=== PATIENT | female | born 1945 | race Caucasian/White ===

== ENCOUNTER 2016-06-12 08:25 | Emergency (ER) | payer OTHER ==
[2016-06-12] MEDS ORDERED: IPRATROPIUM/ALBUTEROL 3 ML DEYVIAL IH ONE (09:05)
--- NOTE | 2016-06-12 09:05 | UCPHY ---
H & P Time Seen by Provider: 06/12/16 08:34 Patient Type: Established HPI/ROS: CHIEF COMPLAINT: Cough, body aches HPI: The patient is a 70-year-old female with a history of uterine cancer and polymyositis. She complains of approximately 3 days of nonproductive cough and body aches. She has not had a fever. She denies chest pain. She denies rash. She does complain of a mild headache. She has been taking Mucinex. REVIEW OF SYSTEMS: Aside from elements discussed in the HPI, a comprehensive 10-point review of systems was reviewed and is negative. PMH: Urine cancer, polymyositis. SOCIAL HISTORY: Denies drug or alcohol abuse. FAMILY HISTORY: Reviewed, noncontributory PHYSICAL EXAM: General:Patient is alert, in no acute distress. ENT:Eyes are normal to inspection. ENT inspection normal. Neck: Normal inspection. Full range of motion. Respiratory:No respiratory distress. Mild expiratory wheezes present bilaterally. Cardiovascular: Regular rate and rhythm. Strong peripheral pulses. Normal cap refill. Abdomen:The abdomen is nontender to palpation. There are no peritoneal signs. There are normal bowel sounds. Back: Normal to inspection. No tenderness to palpation. Skin: Normal color. No rash. Warm and dry. Extremities: Normal appearance. Full range of motion. Neuro: Oriented x3. Normal motor function. Normal sensory function. Smoking Status: Former smoker Constitutional: Initial Vital Signs Temperature (C) 36.9 C 06/12/16 08:40 Heart Rate 105 H 06/12/16 08:40 Respiratory Rate 22 H 06/12/16 08:40 Blood Pressure 102/60 06/12/16 08:40 O2 Sat (%) 95 06/12/16 08:40 O2 Delivery Mode Room Air Allergies/Adverse Reactions: acetaminophen [From Percocet] Allergy (Mild, Verified 06/12/16 08:40) adhesive Allergy (Mild, Verified 06/12/16 08:40) Rash oxycodone HCl [From Percocet] Allergy (Mild, Verified 06/12/16 08:40) methotrexate [Methotrexate] Allergy (Unknown, Verified 06/12/16 08:40) propoxyphene Allergy (Unknown, Verified 06/12/16 08:40) venom-honey bee [bee venom (honey bee)] Allergy (Unknown, Verified 06/12/16 08: 40) venom-wasp [Wasp Venom] Allergy (Verified 06/12/16 08:40) Home Medications: Medication Instructions Recorded FLUoxetine [Prozac 10 MG (RX)] 10 mg PO DAILY 03/17/12 [place]-3 Fatty Acids [Fish Oil 1000 1,000 mg PO DAILY 03/17/12 mg (OTC)] VALSARTAN/HYDROCHLOROTHIAZIDE 1 each PO DAILY 03/17/12 [Diovan Hct 160-12.5 Mg Tab] Wheat Dextrin [Benefiber] 1 gm PO BID 03/17/12 Levothyroxine [Synthroid 100 mcg 100 mcg PO DAILY06 04/11/12 (RX)] predniSONE [predniSONE] 5 mg PO Q2D 04/11/12 Xalatan 0.005% (RX) 02/21/13 Azithromycin [Zithromax 250 mg 250 mg PO DAILY #6 tab 05/20/13 tab(RX)] Ipratropium/Albuterol Sulfate 2 inh IH QID #1 aer.w.adap 05/20/13 [Combivent Respimat Inhal [place]] predniSONE [Prednisone] 20 mg PO TID #20 tablet 05/20/13 AZITHROMYCIN [Z-PACK] 250 mg PO DAILY 5 Days 06/12/16 HYDROcodone/HOMATROPINE HYCODA 1 tsp PO Q4-6PRN PRN #120 ml 06/12/16 [Hycodan Syrup (RX)] MDM/Departure - MDM Medications Given: Discontinued Medications Albuterol/Ipratropium (Duoneb) 3 ml IH EDNOW ONE Stop: 06/12/16 09:06 Last Admin: 06/12/16 09:19 Dose: 3 ml ED Course/Re-evaluation: This patient presents with cough and body aches that are concerning for pneumonia or influenza. Thankfully, her chest x-ray is negative as is her flu swab. I suspect she likely has a viral upper respiratory illness. I have agreed to give her cough medicine and a prescription for azithromycin should her symptoms worsen. She was mildly tachycardic on exam, but is extremely well- appearing I have no concerns for severe sepsis or septic shock. She has no chest pain to suggest PE or acute coronary syndrome. Discussed strict return precautions. - Depart Disposition: Home, Routine, Self-Care Clinical Impression: Bronchitis Condition: Good Instructions: Acute Bronchitis (ED) Additional Instructions: Use ibuprofen and Tylenol as needed for fever and body aches. Follow up with your primary care physician within 72 hours for reevaluation. Drink plenty of fluids. Return to the emergency department immediately for high fever, severe headache or neck pain, difficulty breathing, abdominal pain, rash or other worsening of condition. Prescriptions: AZITHROMYCIN [Z-PACK] 250 mg PO DAILY 5 Days HYDROcodone/HOMATROPINE HYCODA [Hycodan Syrup (RX)] 1 tsp PO Q4-6PRN PRN #120 ml PRN Reason: Cough, Severe Referrals: Michelle Oneal MD [Primary Care Provider] - As per Instructions - PQRS PQRS Measurement: 134: Depression screening and followup, PRIME MD-PHQ2 (12 years and older) Over the last 2 weeks, how often have you been bothered by any of the following problems? 1. Feeling down, depressed, or hopeless? 2. Little interest or pleasure in doing things? Patient answered no to both 1 and 2 130: Documentation of medications. Reviewed all patient medications, doses, route and frequency. 226: Do you smoke? No. 51: 18 years old and older with diagnosis of COPD, spirometry performance. Spirometry not performed; equipment not available. Patient has no history of COPD 52: 18 years old and older with COPD and symptoms of COPD or FEV1<60% predicted prescribed a B Agonist. Spirometry not performed; equipment not available.
[2016-06-12 09:40] VITALS: BP 111/68; PULSE 102; RESP 20; TEMP 98.2; O2SAT 96
== END 2016-06-12 09:38 | disposition home or self-care (01) ==
LOC: CED 08:25
DX: J40 Bronchitis, not specified as acute or chronic (principal); Z87.891 Personal history of nicotine dependence; Z88.5 Allergy status to narcotic agent
CPT/HCPCS: 71020; G0463; 87400-PO; 99214-PO

== ENCOUNTER 2016-06-14 08:00 | Emergency (ER) | payer OTHER ==
[2016-06-14 08:23] VITALS: TEMP 97.9
--- NOTE | 2016-06-14 08:25 | UCPHY ---
H & P Time Seen by Provider: 06/14/16 08:21 Patient Type: Established HPI/ROS: Chief complaint. Dizziness HPI. 70-year-old female seen urgent care 2 days ago with diagnosis of acute bronchitis. While the cough continues he feels that it really is quite a bit better. She now for the last 1-2 days has been generally weak with tingling in all extremities. She gets lightheaded and near syncopal when she tries to walk across the room and now requires assistance to walk across the room. Diarrhea yesterday and today. Sore chest from coughing. Cough remains nonproductive. No fever but hot and cold symptoms. Some abdominal cramping with the diarrhea. She has been using cough medicine but has not taken prescription for Zithromax given 2 days ago ROS Constitutional. Chills and generalized weakness Eyes. no problems with vision ENT. no sore throat, no nasal drainage Cardiovascular. Chest soreness from coughing Respiratory. Cough Abdominal. Some mild abdominal cramping with diarrhea . no problems urinating MS. no calf pain/swelling, no neck/back pain, no joint pain Skin. no rash Lymph. no swollen glands Neuro. Difficulty walking secondary to lightheadedness Past Medical/Surgical History: Past medical history uterine cancer in polymyositis Social History: , nonsmoker, no alcohol Smoking Status: Former smoker Physical Exam: General Appearance: Alert well-developed female mild distress vital signs are stable with initial blood pressure 172/95 Eyes: Pupils equal and round no pallor or injection. ENT, Mouth: Mucous membranes are moist. Respiratory: There are no retractions. Inspiratory expiratory rhonchi and junky sounding cough Cardiovascular: Regular rate and rhythm. Gastrointestinal: Abdomen is soft and nontender, no masses, bowel sounds normal. Neurological: Awake and alert, sensory and motor exams grossly normal. Skin: Warm and dry, no rashes. Musculoskeletal: Neck is supple nontender. Extremities symmetrical, full range of motion. Psychiatric: Patient is oriented X 3, there is no agitation. Constitutional: Initial Vital Signs Temperature (C) 36.6 C 06/14/16 08:20 Heart Rate 72 06/14/16 08:20 Respiratory Rate 16 06/14/16 08:20 Blood Pressure 172/95 H 06/14/16 08:20 O2 Sat (%) 98 06/14/16 08:20 O2 Delivery Mode Room Air Allergies/Adverse Reactions: acetaminophen [From Percocet] Allergy (Mild, Verified 06/14/16 08:16) adhesive Allergy (Mild, Verified 06/14/16 08:16) Rash oxycodone HCl [From Percocet] Allergy (Mild, Verified 06/14/16 08:16) methotrexate [Methotrexate] Allergy (Unknown, Verified 06/14/16 08:16) propoxyphene Allergy (Unknown, Verified 06/14/16 08:16) venom-honey bee [bee venom (honey bee)] Allergy (Unknown, Verified 06/14/16 08: 16) venom-wasp [Wasp Venom] Allergy (Verified 06/14/16 08:16) Home Medications: Medication Instructions Recorded FLUoxetine [Prozac 10 MG (RX)] 10 mg PO DAILY 03/17/12 [place]-3 Fatty Acids [Fish Oil 1000 1,000 mg PO DAILY 03/17/12 mg (OTC)] VALSARTAN/HYDROCHLOROTHIAZIDE 1 each PO DAILY 03/17/12 [Diovan Hct 160-12.5 Mg Tab] Wheat Dextrin [Benefiber] 1 gm PO BID 03/17/12 Levothyroxine [Synthroid 100 mcg 100 mcg PO DAILY06 04/11/12 (RX)] predniSONE [predniSONE] 5 mg PO Q2D 04/11/12 Xalatan 0.005% (RX) 02/21/13 Azithromycin [Zithromax 250 mg 250 mg PO DAILY #6 tab 05/20/13 tab(RX)] Ipratropium/Albuterol Sulfate 2 inh IH QID #1 aer.w.adap 05/20/13 [Combivent Respimat Inhal [place]] predniSONE [Prednisone] 20 mg PO TID #20 tablet 05/20/13 AZITHROMYCIN [Z-PACK] 250 mg PO DAILY 5 Days 06/12/16 HYDROcodone/HOMATROPINE HYCODA 1 tsp PO Q4-6PRN PRN #120 ml 06/12/16 [Hycodan Syrup (RX)] Medical Decision Making - Diagnostics EKG Interpretation: EKG interpreted by me shows normal sinus rhythm with normal interval and left axis deviation. There is no significant ST elevation or depression. QRS is otherwise normal. Rate is 71 Imaging: One-view chest x-ray compared with x-ray from 2 days ago shows stable chest. Peribronchial thickening and hiatal hernia but no evidence for pneumonia Procedures: IV normal saline with target of 1 L ED Course/Re-evaluation: On re-evaluation the patient feels better after saline. The patient, her , and I discussed imaging EKG lab studies. We discussed treatment plan including importance of follow-up and further evaluation. She is offered admission but declines. Differential Diagnosis: I have considered bronchitis, pneumonia, electrolyte abnormalities, acute coronary syndrome I suspect patient's symptoms are due to viral infection and some dehydration. No evidence for acute coronary syndrome or pneumonia - Data Points Laboratory Results: Laboratory Results 06/14/16 08:43 06/14/16 08:43 06/14/16 06/14/16 08:43 08:43 WBC 3.83 10^3/uL 10^3/uL (3.80-9.50) RBC 4.52 10^6/uL 10^6/uL (4.18-5.33) Hgb 14.0 g/dL g/dL (12.6-16.3) Hct 39.5 % % (38.0-47.0) MCV 87.4 fL fL (81.5-99.8) MCH 31.0 pg pg (27.9-34.1) MCHC 35.4 g/dL g/dL (32.4-36.7) RDW 12.5 % % (11.5-15.2) Plt Count 137 10^3/uL L 10^3/uL (150-400) MPV 10.2 fL fL (8.7-11.7) Neut % (Auto) 67.9 % % (39.3-74.2) Lymph % (Auto) 15.7 % % (15.0-45.0) Elliott % (Auto) 13.8 % H % (4.5-13.0) Eos % (Auto) 1.3 % % (0.6-7.6) Baso % (Auto) 0.8 % % (0.3-1.7) Nucleat RBC Rel Count 0.0 % % (0.0-0.2) Absolute Neuts (auto) 2.60 10^3/uL 10^3/uL (1.70-6.50) Absolute Lymphs (auto) 0.60 10^3/uL L 10^3/uL (1.00-3.00) Absolute Monos (auto) 0.53 10^3/uL 10^3/uL (0.30-0.80) Absolute Eos (auto) 0.05 10^3/uL 10^3/uL (0.03-0.40) Absolute Basos (auto) 0.03 10^3/uL 10^3/uL (0.02-0.10) Absolute Nucleated RBC 0.00 10^3/uL 10^3/uL (0-0.01) Immature Gran % 0.5 % % (0.0-1.1) Immature Gran # 0.02 10^3/uL 10^3/uL (0.00-0.10) Sodium 137 mEq/L mEq/L (134-144) Potassium 3.9 mEq/L mEq/L (3.5-5.2) Chloride 104 mEq/L mEq/L (97-110) Carbon Dioxide 22 mEq/l mEq/l (22-31) Anion Gap 11 mEq/L mEq/L (8-16) BUN 19 mg/dL mg/dL (7-23) Creatinine 0.6 mg/dL mg/dL (0.6-1.0) Estimated GFR > 60 Glucose 96 mg/dL mg/dL (70-100) Calcium 9.8 mg/dL mg/dL (8.5-10.4) Troponin I < 0.012 ng/mL ng/mL (0-0.034) Medications Given: Discontinued Medications Albuterol/Ipratropium (Duoneb) 3 ml IH EDNOW ONE Stop: 06/14/16 08:37 Last Admin: 06/14/16 08:51 Dose: 3 ml Sodium Chloride (Ns) 1,000 mls @ 0 mls/hr IV ONCE ONE PRN Reason: Wide Open Stop: 06/14/16 08:37 Last Admin: 06/14/16 08:49 Dose: 1,000 mls Departure - Departure Disposition: Home, Routine, Self-Care Clinical Impression: Bronchitis Condition: Good Instructions: Acute Bronchitis (ED) Additional Instructions: Drink plenty of fluids and stay hydrated. Gradual diet advancement. Begin your prescription for Zithromax. May continue cough medicine. Return for worsening symptoms. Recheck in 2 days if not improving Referrals: Michelle Oneal MD [Primary Care Provider] - 2-3 days, if not improved - PQRS PQRS Measurement: 134: Depression screening and followup, PRIME MD-PHQ2 (12 years and older) Over the last 2 weeks, how often have you been bothered by any of the following problems? 1. Feeling down, depressed, or hopeless? 2. Little interest or pleasure in doing things? Patient answered no to both 1 and 2 130: Documentation of medications. Reviewed all patient medications, doses, route and frequency. 226: Do you smoke? No. 47: 65 and older: Advanced care planning. Patient designates surrogate decision maker as spouse
[2016-06-14 08:27] VITALS: PULSE 76; RESP 18; O2SAT 95
[2016-06-14] MEDS ORDERED: NS 1,000 ML IV ONE (08:36)
[2016-06-14] MEDS ORDERED: IPRATROPIUM/ALBUTEROL 3 ML DEYVIAL IH ONE (08:36)
[2016-06-14 08:54] LABS: % IMMATURE GRANULYOCYTES 0.5 % (0.0-1.1); ABSOLUTE IMMATURE GRANULOCYTES 0.02 10^3/uL (0.00-0.10); ADD DIFF? NO; ADD MORPH? NO; ADD SCAN? NO; ATYPICAL LYMPHOCYTE FLAG 10 (0-99); FRAGMENT RBC FLAG 0 (0-99); HEMATOCRIT 39.5 % (38.0-47.0); LEFT SHIFT FLG 0 (0-99); LIPEMIA HEMOLYSIS FLAG 90 (0-99); MEAN CELL HEMOGLOBIN CONCENTR. 35.4 g/dL (32.4-36.7); MEAN CELL VOLUME 87.4 fL (81.5-99.8); MEAN PLATELET VOLUME 10.2 fL (8.7-11.7); PLATELET CLUMPS FLAG 10 (0-99); PLATELET COUNT 137 10^3/uL (150-400); RED BLOOD CELL COUNT 4.52 10^6/uL (4.18-5.33); RED CELL DISTRIBUTION WIDTH 12.5 % (11.5-15.2)
--- NOTE | 2016-06-14 08:54 | CPEKG ---
Heart Rate: 71 RR Interval: 845 P-R Interval: 160 QRSD Interval: 78 QT Interval: 428 QTC Interval: 466 P [place]: 63 QRS [place]: -11 T Wave [place]: 37 EKG Severity - NORMAL ECG - EKG Impression: SINUS RHYTHM Electronically Signed By: Nicko Moreno 14-Jun-2016 15:38:58
[2016-06-14 09:08] LABS: ANION GAP 11 mEq/L (8-16); CALCIUM 9.8 mg/dL (8.5-10.4); CARBON DIOXIDE 22 mEq/l (22-31); CHLORIDE 104 mEq/L (97-110); CREATININE 0.6 mg/dL (0.6-1.0); GLOMERULAR FILTRATION RATE > 60; GLUCOSE 96 mg/dL (70-100); POTASSIUM 3.9 mEq/L (3.5-5.2); SODIUM 137 mEq/L (134-144)
[2016-06-14 09:20] LABS: TROPONIN I < 0.012 ng/mL (0-0.034)
[2016-06-14 10:04] VITALS: BP 148/75
== END 2016-06-14 10:10 | disposition home or self-care (01) ==
LOC: CED 08:00
DX: J40 Bronchitis, not specified as acute or chronic (principal)
CPT/HCPCS: 71010; 93005; 96360; G0463; 80048-PO; 84484-PO; 85025-PO; 93010-PO; 99215-PO

== ENCOUNTER → 2017-03-04 | Outpatient (CLI) | payer OTHER | LOC: CIMAGING 14:13 | PROVIDERS: ATTEND Internal Medicine | DX: Z12.31 Encounter for screening mammogram for malignant neoplasm of breast (principal) | CPT/HCPCS: G0202 ==

== ENCOUNTER → 2018-03-20 | Outpatient (CLI) | payer OTHER | LOC: CIMAGING 10:29 | PROVIDERS: ATTEND Internal Medicine | DX: Z12.31 Encounter for screening mammogram for malignant neoplasm of breast (principal) ==

== ENCOUNTER 2018-07-07 22:19 | Observation (INO) | payer OTHER ==
[2018-07-07] MEDS ORDERED: NS 1,000 ML IV ONE (22:34)
--- NOTE | 2018-07-07 22:34 | EDPHY ---
H & P <Zhane Yanes - Last Filed: 07/08/18 00:12> Source: Patient Exam Limitations: No limitations - Medical/Surgical History Hx Asthma: Yes Hx Chronic Respiratory Disease: Yes Hx Diabetes: No Hx Cardiac Disease: No Hx Renal Disease: No Hx Cirrhosis: No Hx Alcoholism: No Hx HIV/AIDS: No Hx Splenectomy or Spleen Trauma: No Other PMH: Polymyocytitis, uterine CA, Mild Asthma, Bronchitis, pneumonia - Family History Significant Family History: No pertinent family hx - Social History Smoking Status: Former smoker Alcohol Use: None <Seun Razo - Last Filed: 07/08/18 13:43> Time Seen by Provider: 07/07/18 22:31 HPI/ROS: CHIEF COMPLAINT: Palpitations HISTORY OF PRESENT ILLNESS: Patient is a 72-year-old female who comes to the emergency department complaining of palpitations. They have been intermittent since this morning but have been consistent for the last couple of hours. She has never had these sensations before. She is in atrial fibrillation. She denies any significant caffeine use. She states that she just recovered from bronchitis last week but is not on any decongestants. She has not been on any recent antibiotics. She takes thyroid hormone but has not had any changes recently in her doses. No recent fevers. No shortness of breath. No lightheadedness. She does have a history of polymyositis and takes chronic doses of steroids. Severity: Moderate Modifying factors: None REVIEW OF SYSTEMS: Constitutional: denies: chills, fever, recent illness, recent injury EENTM: denies: blurred vision, double vision, nose congestion Respiratory: denies: cough, shortness of breath Cardiac: See HPI Gastrointestinal/Abdominal: denies: abdominal pain, diarrhea, nausea, vomiting, blood streaked stools Genitourinary: denies: dysuria, frequency, hematuria, pain Musculoskeletal: denies: joint pain, muscle pain Skin: denies: lesions, rash, jaundice, bruising Neurological: denies: headache, numbness, paresthesia, tingling, dizziness, weakness Hematologic/Lymphatic: denies: blood clots, easy bleeding, easy bruising Immunologic/allergic: denies: HIV/AIDS, transplant 10 systems reviewed and negative except as noted EXAM: GENERAL: Well-appearing, well-nourished and in no acute distress. HEAD: Atraumatic, normocephalic. EYES: Pupils equal round and reactive to light, extraocular movements intact, sclera anicteric, conjunctiva are normal. ENT: TMs normal, nares patent, oropharynx clear without exudates. Moist mucous membranes. NECK: Normal range of motion, supple without lymphadenopathy or JVD. LUNGS: Breath sounds clear to auscultation bilaterally and equal. No wheezes rales or rhonchi. HEART: Rapid irregular heartbeat ABDOMEN: Soft, nontender, normoactive bowel sounds. No guarding, no rebound. No masses appreciated. BACK: No CVA tenderness, no spinal tenderness, step-offs or deformities EXTREMITIES: Normal range of motion, no pitting or edema. No clubbing or cyanosis. NEUROLOGICAL: Cranial nerves II through XII grossly intact. Normal speech, normal gait. 5/5 strength, normal movement in all extremities, normal sensation , normal reflexes PSYCH: Normal mood, normal affect. SKIN: Warm, dry, normal turgor, no visible rashes or lesions. (Seun Razo) Constitutional: Initial Vital Signs Temperature (C) 37.2 C 07/07/18 22:25 Heart Rate 136 H 07/07/18 22:25 Respiratory Rate 16 07/07/18 22:25 Blood Pressure 150/106 H 07/07/18 22:25 O2 Sat (%) 95 07/07/18 22:25 O2 Delivery Mode Room Air Allergies/Adverse Reactions: acetaminophen [From Percocet] Allergy (Mild, Verified 07/07/18 22:56) adhesive Allergy (Mild, Verified 07/07/18 22:56) Rash oxycodone HCl [From Percocet] Allergy (Mild, Verified 07/07/18 22:56) methotrexate [Methotrexate] Allergy (Unknown, Verified 07/07/18 22:56) propoxyphene Allergy (Unknown, Verified 07/07/18 22:56) venom-honey bee [bee venom (honey bee)] Allergy (Unknown, Verified 07/07/18 22: 56) venom-wasp [Wasp Venom] Allergy (Verified 07/07/18 22:56) Home Medications: Medication Instructions Recorded FLUoxetine [Prozac 10 MG (*)] 10 mg PO DAILY 03/17/12 VALSARTAN/HYDROCHLOROTHIAZIDE 1 each PO DAILY 03/17/12 [DIOVAN HCT 160-12.5 MG TAB] Levothyroxine [Synthroid 100 mcg 100 mcg PO DAILY06 04/11/12 (*)] predniSONE 5 mg PO Q2D 04/11/12 Ipratropium/Albuterol Sulfate 2 inh IH QID #1 aer.w.adap 05/20/13 [Combivent Respimat 20-100 Mcg] Medical Decision Making - Diagnostics Imaging: I viewed and interpreted images myself <Zhane Yanes - Last Filed: 07/08/18 00:12> <Seun Razo - Last Filed: 07/08/18 13:43> - Diagnostics EKG Interpretation: An EKG obtained and was read and documented in trace view. Please see trace view for full reading and report. Atrial fibrillation with RVR (Seun Razo) Imaging Results: Imaging Impressions Chest X-Ray 07/07/18 22:34 Impression: Central bronchitis, without acute cardiopulmonary abnormality. Moderate size hiatal hernia. CXR - mild peribronchial cuffing, hiatal hernia, LLL linear scarring unchanged. (Zhane Yanes) ED Course/Re-evaluation: The patient was signed out to me by Dr. Razo at 2300. The patient was seen and examined. Prior record reviewed. The patient was given the previously ordered dose of diltiazem 10 mg IV push. She briefly converted to a normal sinus rhythm but went back into atrial fibrillation with her heart rate reaching the 130s. Her blood pressure remained stable or elevated throughout. The case was discussed with the hospitalist senior microsoft consultant at [facility], Dr. Marin Painting. He would like the patient to have a Cardizem drip as well as Lovenox 1 milligram/kilogram subcutaneously and have the patient admitted to PCU. The patient originally expressed her desire to go by private vehicle to the [facility] but was able to be persuaded to go by ambulance. A Cardizem drip was started at 5 mg and the patient converted back into normal sinus rhythm. Her 2nd EKG showed normal sinus rhythm with a heart rate of 85 with no acute ischemic changes. The Lovenox was administered. The patient's CBC, comprehensive metabolic panel, troponin, thyroid panel and coags were within normal limits. CXR showed mild peribronchial cuffing, hiatal hernia, LLL scarring which was unchanged. The patient remained stable throughout her ER stay and was transfered by ALS to [facility]. (Zhane Yanes) I informed the patient that she would require admission for new onset atrial fibrillation. Will give her diltiazem and likely start her on a blood thinner. IV is being started and lab work is being drawn. Will transfer case to Dr. Yanes at shift change. (Seun Razo) Differential Diagnosis: Partial list of the Differential diagnosis considered include but were not limited to; AFib, anxiety, SVT and although unlikely based on the history and physical exam, I also considered acute coronary disease, infection, dissection. (Seun Razo) - Data Points Medications Given: Apixaban (Eliquis) 5 mg PO BID RAMO Stop: 01/04/19 08:59 Last Admin: 07/08/18 10:05 Dose: 5 mg Diltiazem HCl (Cardizem Immediate Release) 30 mg PO Q6HRS RAMO Stop: 01/04/19 06:44 Last Admin: 07/08/18 12:38 Dose: 30 mg Fluoxetine HCl (Prozac) 10 mg PO DAILY RAMO Stop: 01/04/19 08:59 Last Admin: 07/08/18 07:58 Dose: 10 mg Hydrochlorothiazide (Microzide) 12.5 mg PO DAILY RAMO Stop: 01/04/19 09:44 Last Admin: 07/08/18 10:08 Dose: 12.5 mg Levothyroxine Sodium (Synthroid) 100 mcg PO DAILY06 RAMO Stop: 01/04/19 06:44 Last Admin: 07/08/18 08:01 Dose: 100 mcg Valsartan (Diovan) 160 mg PO DAILY RAMO Stop: 01/04/19 09:44 Last Admin: 07/08/18 10:08 Dose: 160 mg Discontinued Medications Diltiazem HCl (Cardizem 25 Mg/5 Ml Vial) 10 mg IVP EDNOW ONE Stop: 07/07/18 22:41 Last Admin: 07/07/18 22:48 Dose: 10 mg Enoxaparin Sodium (Lovenox) 80 mg SC EDNOW ONE Stop: 07/07/18 23:45 Last Admin: 07/07/18 23:51 Dose: 80 mg Sodium Chloride (Ns) 1,000 mls @ 0 mls/hr IV EDNOW ONE; Wide Open PRN Reason: Protocol Stop: 07/07/18 22:35 Last Admin: 07/07/18 22:35 Dose: 1,000 mls Diltiazem HCl 125 mg/ Sodium (Chloride) 125 mls @ 0 mls/hr IV EDNOW ONE; Titrate PRN Reason: Protocol Stop: 07/07/18 23:39 Last Admin: 07/07/18 23:48 Dose: 125 mls Miscellaneous Medication (Valsartan/Hydrochlorothiazide [Diovan Hct 160-12.5 Mg Tab]) 1 each PO DAILY RAMO Stop: 01/04/19 08:59 Last Admin: 07/08/18 10:09 Dose: Not Given Prednisone (Prednisone) 20 mg PO TID RAMO Stop: 01/04/19 08:59 Last Admin: 07/08/18 07:57 Dose: 20 mg Point of Care Test Results: CBC CBC Collection Date 07/07/18 CBC Collection Time 22:39 WBC 7.44 RBC 4.69 HGB 14.4 HCT 41.3 PLT 257 Neut # 4.50 Neut 60.4 LYMPH # 1.94 LYMPH 26.1 MCV 88.1 Chemistry 07/07/18 07/07/18 22:48 22:47 POC Sodium 142 mEq/L mEq/L (135-145) POC Potassium 3.7 mEq/L mEq/L (3.3-5.0) POC Chloride 105.0 mEq/L mEq/L (97-110) POC Total CO2 23 mEq/L mEq/L (22-31) POC BUN 21 mg/dL mg/dL (7-23) POC Creatinine 1.0 mg/dL mg/dL (0.6-1.0) POC Glucose 99 mg/dL mg/dL (70-100) POC Calcium 10.4 mg/dL mg/dL (8.5-10.4) POC Total Bilirubin 0.6 mg/dL mg/dL (0.1-1.4) POC AST 33 IU/L IU/L (14-46) POC ALT 30 IU/L IU/L (9-52) POC Alk Phosphatase 57 IU/L IU/L (38-126) POC Troponin I 0.01 ng/mL ng/mL (0.00-0.08) POC Total Protein 6.5 g/dL g/dL (6.3-8.2) POC Albumin 4.0 g/dL g/dL (3.5-5.0) Departure <Zhane Yanes - Last Filed: 07/08/18 00:12> <Seun Razo - Last Filed: 07/08/18 13:43> - Departure Disposition: [facility] Inpatient Acute Clinical Impression: Atrial flutter with rapid ventricular response Condition: Fair
[2018-07-07] MEDS ORDERED: DILTIAZEM 25 MG/5 ML VIAL IVP ONE (22:40)
--- NOTE | 2018-07-07 22:44 | CPEKG ---
Test Reason : OPEN Blood Pressure : / mmHG Vent. Rate : 148 BPM Atrial Rate : 300 BPM P-R Int : 104 ms QRS Dur : 078 ms QT Int : 306 ms P-R-T Axes : 000 -04 055 degrees QTc Int : 481 ms Atrial fibrillation with rapid V-rate ST depression, probably rate related Confirmed by Seun Razo ([id number]) on 07/07/2018 10:44:03 PM Referred By: PHYSICIAN ED Confirmed By:Seun Razo
[2018-07-07] MEDS ORDERED: NS 100 ML BAG IV ONE (23:29)
[2018-07-07] MEDS ORDERED: DILTIAZEM 125 MG/25 ML VIAL IV ONE (23:29)
[2018-07-07] MEDS ORDERED: DILTIAZEM 125 MG in NS 100 ML IV ONE (23:38)
[2018-07-07 23:40] LABS: INR 0.92 (0.83-1.16)
[2018-07-07] MEDS ORDERED: ENOXAPARIN 80 MG/0.8 ML SYR SC ONE (23:44)
--- NOTE | 2018-07-08 00:48 | CPEKG ---
Test Reason : OPEN Blood Pressure : / mmHG Vent. Rate : 085 BPM Atrial Rate : 085 BPM P-R Int : 165 ms QRS Dur : 083 ms QT Int : 368 ms P-R-T Axes : 067 -13 038 degrees QTc Int : 438 ms Sinus rhythm Confirmed by Zhane Yanes ([id number]) on 07/08/2018 12:48:10 AM Referred By: Zhane Ynaes Confirmed By:Zhane Yanes
[2018-07-08] MEDS ORDERED: ONDANSETRON DISINTEGRATING 4 MG TAB PO PRN (01:27)
[2018-07-08] MEDS ORDERED: ONDANSETRON 4 MG/2 ML VIAL IVP PRN (01:27)
[2018-07-08] MEDS ORDERED: DILTIAZEM HCL/D5W 125 ML IV SCH (01:30)
--- NOTE | 2018-07-08 01:54 | PDGENHP ---
History and Physical - Chief Complaint Palpitations - History of Present Illness 72 yo F w/ hx of polymyositis, endometrial CA, and HTN presents with palpitations and chest discomfort. The patient was at dinner this evening when she noted acute onset of palpitations and chest discomfort. She checked her HR and noted it to be in the 160s so she presented to the [facility] for evaluation. At the [facility] she was noted to be in atrial fibrillation. This is a new diagnosis for the patient. She tells me she has been recovering from a recent bout of bronchitis. At the [facility] her heart rate remained >130 after a bolus of diltiazem so she is being transferred to [facility] for further management. During my evaluation the patient is feeling comfortable and denies complaints. She is now in NSR per my review of telemetry. Case discussed with ED physician Farzana; records reviewed and summarized above. History Information - Allergies/Home Medication List Allergies/Adverse Reactions: acetaminophen [From Percocet] Allergy (Mild, Verified 07/07/18 22:56) adhesive Allergy (Mild, Verified 07/07/18 22:56) Rash oxycodone HCl [From Percocet] Allergy (Mild, Verified 07/07/18 22:56) methotrexate [Methotrexate] Allergy (Unknown, Verified 07/07/18 22:56) propoxyphene Allergy (Unknown, Verified 07/07/18 22:56) venom-honey bee [bee venom (honey bee)] Allergy (Unknown, Verified 07/07/18 22: 56) venom-wasp [Wasp Venom] Allergy (Verified 07/07/18 22:56) Home Medications: FLUoxetine [Prozac 10 MG (RX)] 10 mg PO DAILY 03/17/12 [Last Taken 05/20/13 07: 00] VALSARTAN/HYDROCHLOROTHIAZIDE [Diovan Hct 160-12.5 Mg Tab] 1 each PO DAILY 03/17 [Last Taken 05/20/13 07:00] Levothyroxine [Synthroid 100 mcg (RX)] 100 mcg PO DAILY06 04/11/12 [Last Taken 05/20/13 07:00] predniSONE [predniSONE] 5 mg PO Q2D 04/11/12 [Last Taken 05/20/13 07:00] I have personally reviewed and updated: family history, medical history - Past Medical History cancer (Endometrial), hypertension Additional medical history: Polymyositis - Surgical History Reports: hysterectomy - Family History Positive for: hypertension Additional family history: Psoriasis. Possibly SLE - Social History Smoking Status: Former smoker Alcohol Use: None Review of Systems Review of Systems: ROS: 10pt was reviewed & negative except for what was stated in HPI & below Physical Exam Physical Exam: Temp Pulse Resp BP Pulse Ox 37.2 C 80 14 146/90 H 94 07/08/18 01:34 07/08/18 01:34 07/08/18 01:34 07/08/18 01:34 07/08/18 01:34 Constitutional: no apparent distress, appears nourished Eyes: PERRL, EOMI Ears, Nose, Mouth, Throat: moist mucous membranes, no oral mucosal ulcers Cardiovascular: regular rate and rhythym, systolic murmur Respiratory: no respiratory distress, clear to auscultation Gastrointestinal: normoactive bowel sounds, no palpable masses Skin: warm, normal color Neurologic: AAOx3, sensation intact bilaterally Psychiatric: interacting appropriately, not anxious Lab Data & Imaging Review PT 12.0 SEC (12.0-15.0) 07/07/18 22:38 INR 0.92 (0.83-1.16) 07/07/18 22:38 POC Sodium 142 mEq/L (135-145) 07/07/18 22:48 POC Potassium 3.7 mEq/L (3.3-5.0) 07/07/18 22:48 POC Chloride 105.0 mEq/L (97-110) 07/07/18 22:48 POC Total CO2 23 mEq/L (22-31) 07/07/18 22:48 POC BUN 21 mg/dL (7-23) 07/07/18 22:48 POC Creatinine 1.0 mg/dL (0.6-1.0) 07/07/18 22:48 POC Glucose 99 mg/dL (70-100) 07/07/18 22:48 POC Calcium 10.4 mg/dL (8.5-10.4) 07/07/18 22:48 POC Total Bilirubin 0.6 mg/dL (0.1-1.4) 07/07/18 22:48 POC AST 33 IU/L (14-46) 07/07/18 22:48 POC ALT 30 IU/L (9-52) 07/07/18 22:48 POC Alk Phosphatase 57 IU/L (38-126) 07/07/18 22:48 POC Troponin I 0.01 ng/mL (0.00-0.08) 07/07/18 22:47 POC Total Protein 6.5 g/dL (6.3-8.2) 07/07/18 22:48 POC Albumin 4.0 g/dL (3.5-5.0) 07/07/18 22:48 TSH 2.830 uIU/mL (0.465-4.680) 07/07/18 22:38 Free T4 1.48 ng/dL (0.59-2.19) 07/07/18 22:38 Visualized and Interpreted EKG results: Yes EKG Interpretation: Positive for: other (AF w/ RVR) Assessment & Plan Assessment: 72 yo F w/ hx of polymyositis, endometrial CA, and HTN presents with new AF w/ RVR. Plan: 1. AF w/ RVR - New diagnosis for this patient; she noted acute onset around 5 PM on 07/07. She does have prior history of aortic valve and mitral valve disease but has not had an echocardiogram in at least 5 years. At the time of my evaluation she has converted to NSR after brief period on diltiazem drip. [id number] of 3 for age, sex, and HTN. - Observe in PCU - S/p Lovenox x1 - Monitor on telemetry - Diltiazem if RVR recurrent - TTE ordered noting hx of valvular disease - Cardiology consultation placed in [facility] 2. Polymyositis - She is on chronic prednisone for this. - Continue pending reconciliation 3. HTN - On Losartan/HCTZ as an outpatient. 4. Hx endometrial CA - S/p hysterectomy Diet - Regular Code - Full Ppx - LMWH, SCDs Dispo - Admit under observation status
[2018-07-08 05:22] LABS: PLATELET COUNT 222 10^3/uL (150-400)
[2018-07-08] MEDS ORDERED: LEVOTHYROXINE 100 MCG TAB PO SCH (06:45)
[2018-07-08] MEDS: DILTIAZEM 30 MG TAB PO SCH ×2 (07:57→12:38)
[2018-07-08] MEDS ORDERED: HYDROCHLOROTHIAZIDE PO SCH (09:00)
[2018-07-08] MEDS ORDERED: FLUoxetine 10 MG CAP PO SCH (09:00)
[2018-07-08] MEDS ORDERED: VALSARTAN PO SCH (09:00)
[2018-07-08] MEDS ORDERED: predniSONE 20 MG TAB PO SCH (09:00)
[2018-07-08] MEDS ORDERED: [UNRECOGNIZED DRUG - OTHER] PO SCH (09:00)
[2018-07-08] MEDS ORDERED: APIXABAN 5 MG TAB PO SCH (09:00)
[2018-07-08] MEDS ORDERED: HYDROCHLOROTHIAZIDE 12.5 MG CAP PO SCH (09:45)
[2018-07-08] MEDS: VALSARTAN 160 MG TAB PO SCH ×2 (10:05→10:08)
[2018-07-08] MEDS ORDERED: IPRATROPIUM/ALBUTEROL 4GM MDI IH PRN (12:00)
--- NOTE | 2018-07-08 12:15 | CPEKG ---
Test Reason : OPEN Blood Pressure : / mmHG Vent. Rate : 075 BPM Atrial Rate : 075 BPM P-R Int : 177 ms QRS Dur : 079 ms QT Int : 402 ms P-R-T Axes : 073 013 032 degrees QTc Int : 449 ms Sinus rhythm Confirmed by John Pastrana ([id number]) on 07/08/2018 12:15:28 PM Referred By: Zhane Yanes Confirmed By:John Pastrana
[2018-07-08 12:20] VITALS: BP 151/76
--- NOTE | 2018-07-08 14:50 | ECHO ---
[email or web address] [address] [address] Main: [phone] Echocardiography Examination Transthoracic Name: NICOLE WILKES MR#: [id number] Study Date: 07/08/2018 Study Time: 11:40 AM Date of : 1945 Age: 72 year(s) Height: 165.1 cm (65 in.) Weight: 77.11 kg (170 lb.) BSA: 1.85 m2 Gender: Female Examination: Echo Contrast: Image Quality: Good Rhythm: Normal sinus rhythm Heart Rate: 77 bpm BP: 172 mmHg/88 mmHg Indication: New onset of A-fib, now NSR Procedure Staff Referring Physician: Entry Level Project Coordinator: Shane Blackwood RDCS Reading Physician: John Pastrana MD Requesting Provider: Indication: New onset of A-fib, now NSR Measurements Chambers AV/MV Label Value Normal Value Label Value Normal Value LVOT Vmax 1.4 m/s (0.7m/s - 1.1m/s) AV PGmax 27 mmHg LVOTd 1.9 cm (1.8cm - 2cm) AV PGmean 12 mmHg LVOT PGmax 8 mmHg AV Vmax 2.61 m/s LVDd, 2D 3.4 cm (3.9cm - 5.3cm) SHANTHI (Vmax) 1.5 cm2 LVDs, 2D 2.2 cm (2.1cm - 4cm) SHNATHI (VTI) 1.7 cm2 IVSd, 2D 0.9 cm (0.6cm - 1.1cm) MV E Vmax 1.48 m/s LVPWd, 2D 1 cm MV A Vmax 1.74 m/s LVEF, 2D 67 % (54% - 74%) MV E/A 0.85 LVOT PGmean 5 mmHg MV E/E' lateral 19 LVOT Vmean 1 m/s MV E/E' septal 33 (0.45 - 1.25) RVDd, 2D 1.4 cm (1.9cm - 3.8cm) MV E' septal 0.04 m/s LA Volume, BP 43 ml (22ml - 52ml) MV VTI 59.8 cm LADs, 2D 4.1 cm (2.7cm - 3.8cm) MVA D (continuity eq.) 1.7 cm2 LAESV index, BP 23.2 ml/m2 MV PGmax 18 mmHg MV PGmean 7 mmHg MV PHT 0.08 s MVA PHT 2.8 cm2 MV Akua 3.2 cm MR Vena Contracta 0.4 cm MR Reg. Volume 25 ml Patient: NICOLE WILKES Study Date: 07/08/2018 Page 1 of 3 11:40 AM MR Reg. Fraction 5 % MR Vmax 5.35 m/s MR VTI 157 cm MR (ERO) 0.16 cm2 MV E' lateral 0.08 m/s MR PISA Radius 0.6 cm MV E/E' mean 24.67 MR PISA Alias V. 38.5 cm/s MV PHT 80 ms MV E' mean 0.06 m/s TV/PV Label Value Normal Value PV PGmax 7 mmHg PV Vmax, Caliper 1.32 m/s (0.6m/s - 0.9m/s) Conclusions Left Ventricle: Normal global systolic left ventricular function. Cannot determine LAP and Diastolic Dysfunction Grade. Right Ventricle: Right ventricular systolic function is normal. Mitral Valve: Mild mitral valve stenosis. There is moderate mitral calcification. Pericardium: No pericardial effusion. Findings Left Ventricle: Left ventricle is normal in size. Normal global systolic left ventricular function. The EF is visually estimated to be 70 %. EF range is estimated at 65 % - 70 %. Left ventricle wall thickness is normal. There are no regional wall motion abnormalities. Cannot determine LAP and Diastolic Dysfunction Grade. No LV hypertrophy. Right Ventricle: Normal size right ventricle. Right ventricular systolic function is normal. Left Atrium: The left atrium is normal in size. Right Atrium: The right atrium is normal in size. Mitral Valve: Mild mitral regurgitation. Mild mitral valve stenosis. There is moderate mitral calcification. Mitral Valve Measurements MV PGmean is 7 mmHg. MV PHT is 0.080 s. Aortic Valve: No significant aortic valve regurgitation. There is no aortic stenosis. Aortic leaflets exhibit mild calcification. Aortic Valve Measurements AV PGmean is 12 mmHg. SHANTHI (Vmax) is 1.5 cm2. Tricuspid Valve: Tricuspid valve leaflets are structurally normal. No significant tricuspid regurgitation. Patient: NICOLE WILKES Study Date: 07/08/2018 Page 2 of 3 11:40 AM Pulmonic Valve: Pulmonic leaflets are structurally normal. No pulmonic valve regurgitation is evident. Aorta: The aorta is normal. Pericardium: No pericardial effusion. Exam Details Procedure Ordered: Echo Procedure Status: Routine study Image Quality: Good Facility Location: Cardiac Echo 1 (No Signature Object) Patient: NICOLE WILKES Study Date: 07/08/2018 Page 3 of 3 11:40 AM [id number]
--- NOTE | 2018-07-08 15:53 | ASDISCHSUM ---
Discharge Information Plan Status:Home with No Needs Medically Cleared to Leave:07/08/2018 Discharge Date:07/08/2018 03:25 PM CM D/C Disposition:Home, Routine, Self-Care ADT D/C Disposition:Home, Routine, Self-Care Projected Discharge Date:07/08/2018 03:25 PM Transportation at D/C: Discharge Delay Reason: Follow-Up Date:07/08/2018 03:25 PM Discharge Slot: Final Diagnosis: Placement Information Patient Contact Information Contact Name:SU Relationship: Address:[address] [place] [address] City:[place] Alternate Phone: [facility]/Zip Code:[place] [address] Email: Financial Information Financial Class:Medicare Primary Plan Desc:MEDICARE INPATIENT Primary Plan Number:[id number] Secondary Plan Desc:[facility] Secondary Plan Number:[id number] Assessment Information LACE LACE Length of stay for Answers: Less than 1 day current admission Acuity / Level of Answers: No Care: Did the patient have an inpatient admission? Comorbidities - select Answers: Any tumor (including all that apply lymphoma or leukemia) Other Notes: HTN, psoriasis, polymyo sit is, afib # of Emergency department Answers: 1-2 visits in the last 6 months Score: 4 Date Signed: 07/08/2018 03:52 PM Electronically Signed By:Georgina Birmingham RN Intervention Information Intervention Type:*Incorrect Registration Date of Service:07/08/2018 12:11 PM Patient Type:Observation Staff Member:RAMAN Pickard Courtney Hours: Discipline: Severity: Comment:
--- NOTE | 2018-07-09 16:19 | GDS ---
[f rep st] DISCHARGE SUMMARY DISCHARGE DIAGNOSES: 1. Atrial fibrillation with rapid ventricular response. 2. Polymyositis. 3. Hypertension. CONSULTANTS: None. HISTORY OF DETAILS: Please see history and physical dated July 08, 2018. In brief, the patient is a 72-year-old female with a history of hypertension, polymyositis, and endom etrial cancer who presented to the emergency department with palpitations. She was found to be in at rial fibrillation with rapid ventricular rate and was admitted to the hospital for further management . HOSPITAL COURSE: Patient admitted to the cardiac telemetry unit. She received IV diltiazem bolus fo llowed by a diltiazem drip. Given her CHADS-VASc score of 3 for age, sex, and hypertension, she was started on Lovenox for stroke prevention. While on IV diltiazem drip, she converted to normal sinus rhythm. The following morning, she was transitioned to oral diltiazem for prevention of recurrent ra pid ventricular response. Her vital signs remained stable on discharge. DISPOSITION: Patient is discharged home in stable condition. FOLLOWUP: 1. Dr. Pastrana, [facility]. 2. Dr. Michelle Oneal, primary care. DISCHARGE MEDICATIONS: Please see Intrakr for completed outpatient medication list. MEDICATIONS ON DISCHARGE: 1. Eliquis 5 mg p.o. twice daily #60 no refills. 2. Diltiazem CD 120 mg p.o. daily #30 no refills. /[id number]/MODL
== END 2018-07-08 15:25 | disposition home or self-care (01) ==
LOC: CED 22:19 → INTOOBSV 23:36 → CEDHOLD 23:36 → F2W 07-08 01:15
PROVIDERS: ADMIT Student in an Organized Health Care Education/Training Program; ATTEND Hospitalist
PROC: 5A2204Z Restoration of Cardiac Rhythm, Single (ICD-10-PCS; principal; 2018-07-07)
DX: I48.91 Unspecified atrial fibrillation (principal); M33.20 Polymyositis, organ involvement unspecified; Z79.52 Long term (current) use of systemic steroids; I10 Essential (primary) hypertension; Z85.42 Personal history of malignant neoplasm of other parts of uterus
CPT/HCPCS: 71046; 93005; 93306; 96372; 96374; 96375; 99285; G0378; J1650; J7512; 80053-ER; 84484-ER; 85025-QW-ER

== ENCOUNTER → 2018-07-26 | Outpatient (CLI) | payer OTHER | LOC: BHFA 14:00 | PROVIDERS: ATTEND Internal Medicine Cardiovascular Disease | DX: I48.91 Unspecified atrial fibrillation (principal) | CPT/HCPCS: 78452; 93017; A9500; J2785 ==